=== PATIENT | female | born 1995 | race Caucasian/White ===

== ENCOUNTER 2023-06-20 22:06 | Emergency (ER) | payer SELFPAY ==
[2023-06-20 22:16] VITALS: BP 144/83; PULSE 114; TEMP 36.3; O2SAT 100; BMI 30.9
[2023-06-20 23:22] VITALS: BP 119/74; PULSE 111; RESP 18; O2SAT 98
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
[2023-06-20] MEDS: HYDROcodone-acetaminophen 7.5-325 mg Tablet 1 TAB PO (23:53)
[2023-06-21 00:36] VITALS: PULSE 68; RESP 18; O2SAT 97
--- NOTE | 2023-06-21 10:14 | DCPLANNER ---
Addendum entered by Virginia Angeles 06/23/23 11:04: erp manager received the following message from ENT regarding follow up appointment: All numbers on chart are disconnect. Cannot reach patient. Original Note: erp manager had message to schedule a follow up appointment for patient with ENT. erp manager sent patients information to the front office staff at ENT. Patients information will be printed and reviewed. Clinic will call patient with appointment information.
--- NOTE | 2023-06-21 13:10 | DCPLANNER ---
global commodity manager called patient due to no primary care physician - no answer at this time.
== END 2023-06-21 00:38 | disposition home or self-care (01) ==
PROVIDERS: Emergency Provider Nurse Practitioner Family
DX: S02.2XXA Fracture of nasal bones, initial encounter for closed fracture (principal); V89.2XXA Person injured in unspecified motor-vehicle accident, traffic, initial encounter
CPT/HCPCS: 70486; 72100; 73030; 99284

== ENCOUNTER 2024-02-12 01:25 | Emergency (ER) | payer SELFPAY ==
[2024-02-12 01:31] VITALS: BP 133/88; PULSE 84; RESP 20; TEMP 36.9; O2SAT 100
--- NOTE | 2024-02-12 01:36 | ED_ITS ---
Documented by User: JOSE Mclaughlin 02/12/24 17:10 HPI - Abdominal Pain 2 General: Chief Complaint: Abdominal Pain Stated Complaint: ABD Pain Time Seen by Provider: 02/12/24 01:32 History of Present Illness: 28-year-old female comes in today for co mplaints of right upper quadrant abdominal pain. Patient reports pain started this evening around 10:00. Patient has had very significant pain states some improvement since arrival to the ER. Patient is had some nausea but no vomiting. Patient appears nontoxic. Patient appears in moderate to severe pain. Associated Symptoms: Reports nausea Review of Systems 2 General: Reports: 10 or more systems reviewed and unremarkable except in HPI and below GI: Reports: abdominal pain and nausea Physical Exam 2 Const: COMMON NORMALS: alert HENMT: COMMON NORMALS: normocephalic HEAD & SCALP: normocephalic Neck/C-Spine: COMMON NORMALS: full ROM Resp: COMMON NORMALS: normal respiratory effort and clear to auscultation bilaterally AUSCULTATION: clear to auscultation bilaterally Cardio: COMMON NORMALS: regular rate RATE: regular rate GI: COMMON NORMALS: Soft to palpation PALPATION: Yes Soft to palpation and Yes Tenderness to palpation present (GI) (Epigastric) : COMMON NORMALS: Yes no CVA tenderness BLADDER/KIDNEY EXAM: Yes no CVA tenderness Back/Pelvis: COMMON NORMALS: no CVA tenderness Extremity: COMMON NORMALS: no pedal edema Neuro: SENSORIUM/ORIENTATION: Yes alert Skin: COMMON NORMALS: turgor normal GENERAL SKIN EXAM: turgor normal Course 2 Vital Signs: Vital signs: Vital Signs Temperature 98.5 F 02/12/24 01:31 Pulse Rate 63 02/12/24 04:45 Respiratory Rate 16 02/12/24 04:45 Blood Pressure 123/82 02/12/24 04:45 Pulse Oximetry 96 02/12/24 04:45 Oxygen Delivery Me thod Room Air 02/12/24 01:31 MDM - Abdominal Pain Medical Decision Making 28-year-old female comes in today for complaints of epigastric abdominal pain starting about 10:00 this evening. On exam abdomen soft with some epigastric tenderness. Lungs clear to auscultation. Bowel sounds are present. Skin is warm and dry. Vital signs are normal. Differential diagnosis includes gastritis, pancreatitis, cholecystitis, gallbladder colic, constipation, GERD. Lab Data 02/12/24 01:46 02/12/24 01:46 Labs/Radiology: Radiology Impressions Abdomen/Pelvis CT 02/12/24 01:44 IMPRESSION: 1. Cholelithiasis with no definite gallbladder wall thickening. 2. Prominent, mildly dilated common bile duct which does demonstrate distal tapering. Recommend correlation with liver function tests. Laboratory Results WBC 14.58 10^3/uL (3.29-11.43) H 02/12/24 01:46 RBC 5.00 10^6/uL (3.85-5.65) 02/12/24 01:46 Hgb 14.90 g/dL (11.27-16.99) 02/12/24 01:46 Hct 43.0 % (36-47) 02/12/24 01:46 MCV 86.0 fl (85-98) 02/12/24 01:46 MCH 29.8 pg (27-33) 02/12/24 01:46 MCHC 34.7 g/dL (30-55) 02/12/24 01:46 RDW 12.4 % (12.1-15.1) 02/12/24 01:46 Plt Count 343 10^3/cmm (157-399) 02/12/24 01:46 MPV 9.0 fL (7.4-10.4) 02/12/24 01:46 Neut % (Auto) 50.0 % 02/12/24 01:46 Lymph % (Auto) 39.4 % 02/12/24 01:46 [place] % (Auto) 8.7 % 02/12/24 01:46 Eos % (Auto) 1.2 % 02/12/24 01:46 Baso % (Auto) 0.3 % 02/12/24 01:46 Neut # (Auto) 7.28 10^3/uL (1.8-7.7) 02/12/24 01:46 Lymph # (Auto) 5.8 10^3/uL (0.8-4.8) H 02/12/24 01:46 [place] # (Auto) 1.3 10^3/uL (0.2-0.9) H 02/12/24 01:46 Eos # (Auto) 0.2 10^3/uL (0.0-0.8) 02/12/24 01:46 Baso # (Auto) 0.1 10^3/uL (0.0-0.1) 02/12/24 01:46 Nucleated RBC % (auto) 0 % 02/12/24 01:46 Nucleated RBCs # 0.0 /100WBC 02/12/24 01:46 Sodium 141 mmol/L (136-145) 02/12/24 01:46 Potassium 3.1 mmol/L (3.5-5.1) L 02/12/24 01:46 Chloride 105 mmol/L (98-107) 02/12/24 01:46 Carbon Dioxide 22 mmol/L (22-29) 02/12/24 01:46 Anion Gap 17.1 (5-19) 02/12/24 01:46 BUN 8 mg/dL (6-20) 02/12/24 01:46 Creatinine 0.7 mg/dL (0.5-0.9) 02/12/24 01:46 GFR Calculation 100.4 mL/min (90-130) 02/12/24 01:46 Glucose 117 mg/dL (65-115) H 02/12/24 01:46 Calculated Osmolality 291 mOsm/kg (285-295) 02/12/24 01:46 Calcium 9.5 mg/dL (8.5-10.5) 02/12/24 01:46 Total Bilirubin 0.5 mg/dL (0.15-1.2) 02/12/24 01:46 AST 55 U/L (0-32) H 02/12/24 01:46 ALT 40 U/L (0-33) H 02/12/24 01:46 Alkaline Phosphatase 94 U/L (35-105) 02/12/24 01:46 Total Protein 7.9 g/dL (6.6-8.7) 02/12/24 01:46 Albumin 4.0 g/dL (3.5-5.2) 02/12/24 01:46 Globulin 3.9 g/dL (1.3-4.6) 02/12/24 01:46 Lipase 20 U/L (13-60) 02/12/24 01:46 HCG, Qual Negative (Negative) 02/12/24 01:46 Urine Color Colorless (Yellow) 02/12/24 01:38 Urine Appearance Clear (CLEAR) 02/12/24 01:38 Urine pH 7 (5-7) 02/12/24 01:38 Ur Specific [place] 1.005 (1.005-1.030) 02/12/24 01:38 Urine Protein Neg (Negative) 02/12/24 01:38 Urine Glucose (UA) Norm (Normal) 02/12/24 01:38 Urine Ketones Negative (Negative) 02/12/24 01:38 Urine Blood 2+ (Negative) H 02/12/24 01:38 Urine Nitrate Positive (Negative) H 02/12/24 01:38 Urine Bilirubin Neg (Negative) 02/12/24 01:38 Urine Urobilinogen Neg mg/dL (Negative) 02/12/24 01:38 Ur Leukocyte Esterase Trace (Negative) H 02/12/24 01:38 Urine RBC 5-10 /hpf (0-2) H 02/12/24 01:38 Urine WBC 5-10 /hpf (0-5) H 02/12/24 01:38 Ur Squamous Epith Cells 15-25 /hpf (0-5) H 02/12/24 01:38 Amorphous Sediment Not Reportable 02/12/24 01:38 Urine Bacteria 3+ /hpf (NONE) H 02/12/24 01:38 Urine Trichomonas 1+ /hpf H 02/12/24 01:38 Discharge Plan Discharge Patient Disposition: Home Clinical Impression: Cholelithiases, Infection due to trichomonas vaginalis Abdominal pain Qualifiers: Abdominal location: epigastric Qualified Code(s): R10.13 - Epigastric pain Condition: Stable Prescriptions: New metronidazole 500 mg tablet 500 mg PO BID 7 Days Qty: 14 0RF ondansetron 4 mg tablet,disintegrating 4 mg PO Q6H PRN (Reason: nausea and vomiting) Qty: 14 0RF Continued hydrocodone-acetaminophen 5-325 mg tablet 1 tab PO Q6H PRN (Reason: pain (scale score 7-10)) Qty: 10 0RF Discharge Orders: Discharge ED (Routine); Ordered 02/12/24 Ordered By: Behzad Bowie Patient Instructions: Biliary Colic (ED), Abdominal Pain (ED) Activity Restrictions/Additional Instructions: Follow a liquid diet for the next 24 hours. If pain improved, no vomiting, you can begin to add solid food back and at that point. Use medication for severe discomfort. Return for fever greater than 100, vomiting liquids or medications, yellowing of the eyes or skin, worsening pain despite treatment, any other concerning symptoms. See your doctor next week. Case management has been asked to make you an appointment with the surgeon regarding further evaluation of your gallbladder. Coding Level of Care Code ED Communication Equipment Repairer for Chg [employer] Documented by User: Behzad Bowie DO 02/12/24 05:35 HPI - Abdominal Pain 2 General: Chief Complaint: Abdominal Pain Stated Complaint: ABD Pain Time Seen by Provider: 02/12/24 01:32 Course 2 Vital Signs: Vital signs: Vital Signs Temperature 98.5 F 02/12/24 01:31 Pulse Rate 63 02/12/24 04:45 Respiratory Rate 16 02/12/24 04:45 Blood Pressure 123/82 02/12/24 04:45 Pulse Oximetry 96 02/12/24 04:45 Oxygen Delivery Me thod Room Air 02/12/24 01:31 MDM - Abdominal Pain Medical Decision Making 28-year-old female comes in today for complaints of epigastric abdominal pain starting about 10:00 this evening. On exam abdomen soft with some epigastric tenderness. Lungs clear to auscultation. Bowel sounds are present. Skin is warm and dry. Vital signs are normal. Differential diagnosis includes gastritis, pancreatitis, cholecystitis, gallbladder colic, constipation, GERD. This patient was originally seen by JOSE Mar.? I agree with his history, evaluation, and treatment. She was checked out at shift change. This was pending CT results. CT shows cholelithiasis with no cholecystitis changes. There is mildly dilated common bile duct, but her bilirubin is normal. Pain is improved after Toradol and morphine here. She will be discharged home with biliary colic. She knows to return for any signs of jaundice, fever, worsening pain, etc. Case management has been asked to make a surgical clinic follow-up appointment for this patient for biliary colic. The patient was also treated for trichomonas vaginitis based on her urine testing, and urine was sent for GC and chlamydia as well. Lab Data 02/12/24 01:46 02/12/24 01:46 Labs/Radiology: Radiology Impressions Abdomen/Pelvis CT 02/12/24 01:44 IMPRESSION: 1. Cholelithiasis with no definite gallbladder wall thickening. 2. Prominent, mildly dilated common bile duct which does demonstrate distal tapering. Recommend correlation with liver function tests. Laboratory Results WBC 14.58 10^3/uL (3.29-11.43) H 02/12/24 01:46 RBC 5.00 10^6/uL (3.85-5.65) 02/12/24 01:46 Hgb 14.90 g/dL (11.27-16.99) 02/12/24 01:46 Hct 43.0 % (36-47) 02/12/24 01:46 MCV 86.0 fl (85-98) 02/12/24 01:46 MCH 29.8 pg (27-33) 02/12/24 01:46 MCHC 34.7 g/dL (30-55) 02/12/24 01:46 RDW 12.4 % (12.1-15.1) 02/12/24 01:46 Plt Count 343 10^3/cmm (157-399) 02/12/24 01:46 MPV 9.0 fL (7.4-10.4) 02/12/24 01:46 Neut % (Auto) 50.0 % 02/12/24 01:46 Lymph % (Auto) 39.4 % 02/12/24 01:46 [place] % (Auto) 8.7 % 02/12/24 01:46 Eos % (Auto) 1.2 % 02/12/24 01:46 Baso % (Auto) 0.3 % 02/12/24 01:46 Neut # (Auto) 7.28 10^3/uL (1.8-7.7) 02/12/24 01:46 Lymph # (Auto) 5.8 10^3/uL (0.8-4.8) H 02/12/24 01:46 [place] # (Auto) 1.3 10^3/uL (0.2-0.9) H 02/12/24 01:46 Eos # (Auto) 0.2 10^3/uL (0.0-0.8) 02/12/24 01:46 Baso # (Auto) 0.1 10^3/uL (0.0-0.1) 02/12/24 01:46 Nucleated RBC % (auto) 0 % 02/12/24 01:46 Nucleated RBCs # 0.0 /100WBC 02/12/24 01:46 Sodium 141 mmol/L (136-145) 02/12/24 01:46 Potassium 3.1 mmol/L (3.5-5.1) L 02/12/24 01:46 Chloride 105 mmol/L (98-107) 02/12/24 01:46 Carbon Dioxide 22 mmol/L (22-29) 02/12/24 01:46 Anion Gap 17.1 (5-19) 02/12/24 01:46 BUN 8 mg/dL (6-20) 02/12/24 01:46 Creatinine 0.7 mg/dL (0.5-0.9) 02/12/24 01:46 GFR Calculation 100.4 mL/min (90-130) 02/12/24 01:46 Glucose 117 mg/dL (65-115) H 02/12/24 01:46 Calculated Osmolality 291 mOsm/kg (285-295) 02/12/24 01:46 Calcium 9.5 mg/dL (8.5-10.5) 02/12/24 01:46 Total Bilirubin 0.5 mg/dL (0.15-1.2) 02/12/24 01:46 AST 55 U/L (0-32) H 02/12/24 01:46 ALT 40 U/L (0-33) H 02/12/24 01:46 Alkaline Phosphatase 94 U/L (35-105) 02/12/24 01:46 Total Protein 7.9 g/dL (6.6-8.7) 02/12/24 01:46 Albumin 4.0 g/dL (3.5-5.2) 02/12/24 01:46 Globulin 3.9 g/dL (1.3-4.6) 02/12/24 01:46 Lipase 20 U/L (13-60) 02/12/24 01:46 HCG, Qual Negative (Negative) 02/12/24 01:46 Urine Color Colorless (Yellow) 02/12/24 01:38 Urine Appearance Clear (CLEAR) 02/12/24 01:38 Urine pH 7 (5-7) 02/12/24 01:38 Ur Specific [place] 1.005 (1.005-1.030) 02/12/24 01:38 Urine Protein Neg (Negative) 02/12/24 01:38 Urine Glucose (UA) Norm (Normal) 02/12/24 01:38 Urine Ketones Negative (Negative) 02/12/24 01:38 Urine Blood 2+ (Negative) H 02/12/24 01:38 Urine Nitrate Positive (Negative) H 02/12/24 01:38 Urine Bilirubin Neg (Negative) 02/12/24 01:38 Urine Urobilinogen Neg mg/dL (Negative) 02/12/24 01:38 Ur Leukocyte Esterase Trace (Negative) H 02/12/24 01:38 Urine RBC 5-10 /hpf (0-2) H 02/12/24 01:38 Urine WBC 5-10 /hpf (0-5) H 02/12/24 01:38 Ur Squamous Epith Cells 15-25 /hpf (0-5) H 02/12/24 01:38 Amorphous Sediment Not Reportable 02/12/24 01:38 Urine Bacteria 3+ /hpf (NONE) H 02/12/24 01:38 Urine Trichomonas 1+ /hpf H 02/12/24 01:38 All radiology interpretation(s) finalized by discharge Discharge Plan Discharge Patient Disposition: Home Clinical Impression: Cholelithiases, Infection due to trichomonas vaginalis Abdominal pain Qualifiers: Abdominal location: epigastric Qualified Code(s): R10.13 - Epigastric pain Condition: Stable Prescriptions: New metronidazole 500 mg tablet 500 mg PO BID 7 Days Qty: 14 0RF ondansetron 4 mg tablet,disintegrating 4 mg PO Q6H PRN (Reason: nausea and vomiting) Qty: 14 0RF Continued hydrocodone-acetaminophen 5-325 mg tablet 1 tab PO Q6H PRN (Reason: pain (scale score 7-10)) Qty: 10 0RF Discharge Orders: Discharge ED (Routine); Ordered 02/12/24 Ordered By: Behzad Bowie Patient Instructions: Biliary Colic (ED), Abdominal Pain (ED) Activity Restrictions/Additional Instructions: Follow a liquid diet for the next 24 hours. If pain improved, no vomiting, you can begin to add solid food back and at that point. Use medication for severe discomfort. Return for fever greater than 100, vomiting liquids or medications, yellowing of the eyes or skin, worsening pain despite treatment, any other concerning symptoms. See your doctor next week. Case management has been asked to make you an appointment with the surgeon regarding further evaluation of your gallbladder. Coding Level of Care Code ED Communication Equipment Repairer for Rossy Burgos
--- NOTE | 2024-02-12 01:44 | CTR_ITS ---
PROCEDURE INFORMATION: Exam: CT Abdomen And Pelvis With Contrast Exam date and time: 02/12/2024 2:18 AM Age: 28 years old Clinical indication: Abdominal pain; Localized; Right upper quadrant (ruq); Patient HX: C/O ruq pain TECHNIQUE: Imaging protocol: Computed tomography of the abdomen and pelvis with contrast. Radiation optimization: All CT scans at this facility use at least one of these dose optimization techniques: automated exposure control; mA and/or kV adjustment per patient size (includes targeted exams where dose is matched to clinical indication); or iterative reconstruction. Contrast material: OMNI 350; Contrast volume: 100 ml; Contrast route: INTRAVENOUS (IV); COMPARISON: CR (PELVIS, ) 06/20/2023 11:38 PM RADIATION DOSE METRICS: Total DLP (mGy-cm): 605.33 FINDINGS: Liver: Normal. No mass. Gallbladder and bile ducts: Large calcified intraluminal gallstone. No definite gallbladder wall thickening is identified. Negative for pericholecystic fluid. Common bile duct is mildly dilated at 10 mm within the proximal and midportion with distal tapering evident. Negative for intrahepatic biliary dilation. Pancreas: Normal. No ductal dilation. Spleen: Normal. No splenomegaly. Adrenal glands: Normal. No mass. Kidneys and ureters: Normal. No hydronephrosis. Stomach and bowel: Unremarkable. No obstruction. No mucosal thickening. Appendix: No evidence of appendicitis. Intraperitoneal space: Unremarkable. No free air. No significant fluid collection. Vasculature: Unremarkable. No abdominal aortic aneurysm. Lymph nodes: Unremarkable. No enlarged lymph nodes. Urinary bladder: Unremarkable as visualized. Reproductive: Unremarkable as visualized. Bones/joints: Unremarkable. No acute fracture. Soft tissues: Unremarkable. CT/CT abdomen pelvis w con* [id number] IMPRESSION: 1. Cholelithiasis with no definite gallbladder wall thickening. 2. Prominent, mildly dilated common bile duct which does demonstrate distal tapering. Recommend correlation with liver function tests.
[2024-02-12] MEDS: sodium chloride 0.9% 500 ML 999 ML IV (01:57)
[2024-02-12] MEDS: ondansetron 2 mg/ML SDV 2 mL 4 MG IVP ×2 (01:58→04:10)
[2024-02-12] MEDS: alum-mag-hydroxide-sime 30 mL UDC PO (01:58)
[2024-02-12] MEDS: famotidine 20 mg/2 mL INJ 40 MG IVP (02:00)
[2024-02-12 02:01] LABS: Add Urine Microscopic? YES; Bilirubin Urine Neg (Negative); Blood Urine 2+ (Negative); Glucose Urine UA Norm (Normal); Ketones Urine Negative (Negative); Leukocyte Esterase Urine Trace (Negative); Nitrate Urine Positive (Negative); Protein Urine Neg (Negative); Specific Gravity, Urine 1.005 (1.005-1.030); Urine Appearance Clear (CLEAR); Urine Color Colorless (Yellow); Urobilinogen Urine Neg (Negative); pH Urine 7 (5-7)
[2024-02-12 02:02] LABS: Bacteria Urine 3+ /hpf; Squamous Epithelial Cell Urine 15-25 /hpf (0-5); Trichomonas Urine 1+ /hpf
[2024-02-12 02:03] VITALS: RESP 20; O2SAT 95
[2024-02-12] MEDS: fentaNYL 50 mcg/mL INJ 2mL IVP (02:03)
[2024-02-12 02:05] LABS: Basophils # 0.1 10^3/uL (0.0-0.1); Basophils % 0.3 %; Eosinophils # 0.2 10^3/uL (0.0-0.8); Eosinophils % 1.2 %; Lymphocytes # 5.8 10^3/uL (0.8-4.8); Lymphocytes % 39.4 %; Mean Corpuscular HGB Conc 34.7 g/dL (30-55); Mean Corpuscular Hemoglobin 29.8 pg (27-33); Monocytes # 1.3 10^3/uL (0.2-0.9); Monocytes % 8.7 %; Neutrophils # 7.28 10^3/uL (1.8-7.7); Nucleated Red Blood Cells % 0 %; Platelet Count 343 10^3/cmm (157-399); Red Cell Distribution Width 12.4 % (12.1-15.1); White Blood Count 14.58 10^3/uL (3.29-11.43)
[2024-02-12 02:09] LABS: HCG, Serum Qual Negative (Negative)
[2024-02-12 02:12] LABS: Alanine Aminotransferase 40 U/L (0-33); Alkaline Phosphatase 94 U/L (35-105); Anion Gap 17.1 (5-19); Aspartate Amino Transferase 55 U/L (0-32); Blood Urea Nitrogen 8 mg/dL (6-20); Calcium 9.5 mg/dL (8.5-10.5); Carbon Dioxide 22 mmol/L (22-29); Chloride 105 mmol/L (98-107); Creatinine Clr Calc Pharmacy 123.0576; Globulin 3.9 g/dL (1.3-4.6); Glomerular Filtration Rate 100.4 mL/min (90-130); Glucose 117 mg/dL (65-115); Lipase 20 U/L (13-60); Osmolality Calculated 291 mOsm/kg (285-295); Potassium 3.1 mmol/L (3.5-5.1); Sodium 141 mmol/L (136-145); Total Bilirubin 0.5 mg/dL (0.15-1.2); Total Protein 7.9 g/dL (6.6-8.7)
[2024-02-12] MEDS: iohexol 350 mg/mL 500 mL Btl (per mL) IV (02:28)
[2024-02-12] MEDS: ketorolac 30 mg/mL INJ IVP (04:10)
[2024-02-12 04:12] VITALS: RESP 16
[2024-02-12] MEDS: morphine 4 mg/mL SDV 1 mL IVP (04:12)
[2024-02-12 04:14] VITALS: BP 141/100; PULSE 62; RESP 18; O2SAT 99
[2024-02-12 04:45] VITALS: BP 123/82; PULSE 63; RESP 16; O2SAT 96
--- NOTE | 2024-02-13 11:05 | DCPLANNER ---
A message was sent to general surgery on 02/13/24 at [id number]
--- NOTE | 2024-02-13 11:19 | DCPLANNER ---
A message was sent to general surgery ob 02/13/24 at 1119. [facility] to contact patient
[2024-02-13 20:30] LABS: Chlamydia Trachomatis RNA TMA NOT DETECTED (NOT DETECTED); Neisseria Gonorrhoeae RNA, TMA NOT DETECTED (NOT DETECTED); Trichomonas Vaginalis RNA DETECTED (NOT DETECTED)
== END 2024-02-12 04:42 | disposition home or self-care (01) ==
PROVIDERS: Nurse Practitioner Family; Emergency Provider Emergency Medicine
DX: K80.20 Calculus of gallbladder without cholecystitis without obstruction (principal); A59.00 Urogenital trichomoniasis, unspecified; R10.13 Epigastric pain
CPT/HCPCS: 74177; 80053; 81001; 83690; 84703; 85025; 87491; 87591; 96361; 96374; 96375; 96376; 99285; J1885; J2270; J2405; J3010; J3490; J7040; Q9967

== ENCOUNTER 2024-02-15 17:08 | Emergency (ER) | payer SELFPAY ==
[2024-02-15 17:08] VITALS: BP 120/87; PULSE 105; RESP 18; TEMP 36.5; O2SAT 100; BMI 30.9
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
[2024-02-15 17:41] VITALS: BP 85/43; PULSE 84; O2SAT 95
[2024-02-15] MEDS: sodium chloride 0.9% 1,000 ML 999 ML IV ×2 (18:07→19:32)
[2024-02-15 18:20] LABS: Basophils # 0.1 10^3/uL (0.0-0.1); Basophils % 0.6 %; Eosinophils # 0.3 10^3/uL (0.0-0.8); Hematocrit 40.7 % (36-47); Lymphocytes # 4.7 10^3/uL (0.8-4.8); Lymphocytes % 37.2 %; Mean Corpuscular HGB Conc 34.6 g/dL (30-55); Mean Corpuscular Volume 86.6 fl (85-98); Mean Platelet Volume 9.1 fL (7.4-10.4); Monocytes # 1.2 10^3/uL (0.2-0.9); Monocytes % 9.4 %; Neutrophils # 6.31 10^3/uL (1.8-7.7); Neutrophils % 50.3 %; Nucleated Red Blood Cells % 0 %; Platelet Count 310 10^3/cmm (157-399); Red Cell Distribution Width 12.2 % (12.1-15.1); White Blood Count 12.54 10^3/uL (3.29-11.43)
[2024-02-15 18:32] LABS: Alanine Aminotransferase 58 U/L (0-33); Alkaline Phosphatase 119 U/L (35-105); Anion Gap 15.2 (5-19); Aspartate Amino Transferase 43 U/L (0-32); Blood Urea Nitrogen 14 mg/dL (6-20); Carbon Dioxide 23 mmol/L (22-29); Chloride 105 mmol/L (98-107); Creatinine Clr Calc Pharmacy 120.4276; Globulin 3.1 g/dL (1.3-4.6); Glomerular Filtration Rate 100.4 mL/min (90-130); Glucose 83 mg/dL (65-115); Osmolality Calculated 290 mOsm/kg (285-295); Potassium 3.2 mmol/L (3.5-5.1); Sodium 140 mmol/L (136-145); Total Bilirubin 0.8 mg/dL (0.15-1.2); Total Protein 7.1 g/dL (6.6-8.7)
[2024-02-15 18:33] LABS: Alcohol Level < 10 mg/dL (0-10)
[2024-02-15 18:52] VITALS: BP 89/40; PULSE 77; RESP 13; O2SAT 96
[2024-02-15 20:30] VITALS: BP 93/57; PULSE 76; RESP 14; O2SAT 98
[2024-02-15 21:08] VITALS: BP 98/57; PULSE 77; RESP 15; O2SAT 96
== END 2024-02-15 21:09 | disposition home or self-care (01) ==
PROVIDERS: Emergency Provider Nurse Practitioner Family
DX: S01.81XA Laceration without foreign body of other part of head, initial encounter (principal); F19.920 Other psychoactive substance use, unspecified with intoxication, uncomplicated; Y04.2XXA Assault by strike against or bumped into by another person, initial encounter; Y07.040 Female partner, current, perpetrator of maltreatment and neglect
CPT/HCPCS: 12011; 70450; 80053; 80307; 85025; 96361; 96374; 99285; J2310; J7030

== ENCOUNTER 2024-05-04 01:53 | Emergency (ER) | payer SELFPAY ==
[2024-05-04 01:54] VITALS: BP 132/104; PULSE 105; RESP 18; TEMP 37.1; O2SAT 99; BMI 28.3
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
[2024-05-04 02:29] LABS: Basophils % 0.2 %; Eosinophils # 0.2 10^3/uL (0.0-0.8); Eosinophils % 1.9 %; Hematocrit 42.1 % (36-47); Lymphocytes # 3.2 10^3/uL (0.8-4.8); Lymphocytes % 29.8 %; Mean Corpuscular HGB Conc 33.7 g/dL (30-55); Mean Corpuscular Hemoglobin 29.7 pg (27-33); Mean Corpuscular Volume 88.1 fl (85-98); Mean Platelet Volume 8.7 fL (7.4-10.4); Monocytes # 1.3 10^3/uL (0.2-0.9); Monocytes % 11.8 %; Neutrophils # 6.02 10^3/uL (1.8-7.7); Neutrophils % 55.9 %; Nucleated Red Blood Cells % 0 %; Platelet Count 301 10^3/cmm (157-399); Red Blood Count 4.78 10^6/uL (3.85-5.65); Red Cell Distribution Width 12.8 % (12.1-15.1); White Blood Count 10.75 10^3/uL (3.29-11.43)
[2024-05-04 02:39] LABS: Add Urine Microscopic? YES; Bilirubin Urine Neg (Negative); Blood Urine 3+ (Negative); Glucose Urine UA Norm (Normal); Ketones Urine Negative (Negative); Leukocyte Esterase Urine Negative (Negative); Nitrate Urine Positive; Protein Urine Neg (Negative); Urine Appearance Slightly Cloudy (CLEAR); Urine Color Yellow (Yellow); Urobilinogen Urine Neg (Negative); pH Urine 6.5 (5-7)
[2024-05-04 02:40] LABS: Add Urine Culture? No; Bacteria Urine 4+ /hpf; Mucus Urine 2+ /hpf; Squamous Epithelial Cell Urine 15-25 /hpf (0-5)
[2024-05-04 02:41] LABS: Amphetamines Screen Urine Positive (Negative); Barbiturates Screen Urine Negative (Negative); Benzodiazepines Screen Urine Positive (Negative); Cocaine Screen Urine Negative (Negative); Opiate Screen Urine Positive (Negative); PCP Screen Urine Negative (Negative); THC Screen Urine Negative (Negative)
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
[2024-05-04 02:48] LABS: Alanine Aminotransferase 61 U/L (0-33); Albumin Level 4.1 g/dL (3.5-5.2); Alkaline Phosphatase 105 U/L (35-105); Anion Gap 15.7 (5-19); Aspartate Amino Transferase 52 U/L (0-32); Blood Urea Nitrogen 12 mg/dL (6-20); Calcium 9.2 mg/dL (8.5-10.5); Carbon Dioxide 26 mmol/L (22-29); Chloride 105 mmol/L (98-107); Creatinine Clr Calc Pharmacy 114.2211; Globulin 3.6 g/dL (1.3-4.6); Glomerular Filtration Rate 99.6 mL/min (90-130); Glucose 103 mg/dL (65-115); Osmolality Calculated 296 mOsm/kg (285-295); Potassium 3.7 mmol/L (3.5-5.1); Sodium 143 mmol/L (136-145); Total Bilirubin 0.6 mg/dL (0.15-1.2); Total Protein 7.7 g/dL (6.6-8.7)
[2024-05-04 02:49] LABS: Alcohol Level < 10 mg/dL (0-10)
[2024-05-04] MEDS: ketorolac 60 mg/2 mL INJ IM (02:53)
--- NOTE | 2024-05-04 02:56 | PC.NURSE ---
Patient took pulse ox and blood pressure cuff off and threw it on floor, declining to wear them at this time. '
== END 2024-05-04 03:00 | disposition left against medical advice (07) ==
PROVIDERS: Emergency Provider Emergency Medicine
DX: S09.93XA Unspecified injury of face, initial encounter (principal); Z53.29 Procedure and treatment not carried out because of patient's decision for other reasons; Y04.2XXA Assault by strike against or bumped into by another person, initial encounter
CPT/HCPCS: 36415; 70450; 70486; 72125; 73030; 80053; 80306; 80307; 81001; 85025; 96372; 99284; J1885

== ENCOUNTER 2024-08-21 00:44 | Emergency (ER) | payer SELFPAY ==
[2024-08-21 00:48] VITALS: BP 138/86; PULSE 88; RESP 16; TEMP 36.6; O2SAT 100; BMI 28.2
--- NOTE | 2024-08-21 00:53 | ED_ITS ---
HPI - General Adult General: Chief complaint: Airway/Esophagus Foreign Body Stated complaint: FO in throat Time Seen by Provider: 08/21/24 00:47 History of Present Illness: 29-year-old female who presents emergenc y room with feeling of something stuck in her throat. She said she was eating popcorn chicken and got stuck and she had trouble swallowing it. She still feels like there something in there. However she is able to swallow water. She also feels like she may be having some anxiety. She says she just darted back on Suboxone. Related Data Previous Rx's Medication Instructions Recorded hydrocodone 5 mg-acetaminophen 325 1 tab PO Q6H PRN pain (scale score 02/12/24 mg tablet 7-10) #10 tabs ondansetron 4 mg disintegrating 4 mg PO Q6H PRN nausea and 02/12/24 tablet vomiting #14 tabs Allergies Allergy/AdvReac Type Severity Reaction Status Date / Time No Known Allergies Allergy Verified 08/21/24 00:52 Review of Systems Narrative: Constitutional symptoms: Negative except as documented in HPI. Skin symptoms: Negative except as documented in HPI. Eye symptoms: Negative except as documented in HPI. ENMT symptoms: Negative except as documented in HPI. Respiratory symptoms: Negative except as documented in HPI. Cardiovascular symptoms: Negative except as documented in HPI. Gastrointestinal symptoms: Negative except as documented in HPI. Genitourinary symptoms: Negative except as documented in HPI. Musculoskeletal symptoms: Negative except as documented in HPI. Neurologic symptoms: Negative except as documented in HPI. Psychiatric symptoms: Negative except as documented in HPI. Endocrine symptoms: Negative except as documented in HPI. [facility] ED Female Reproductive History: Date of last menstrual period: 07/22/24 Physical Exam Narrative: EXAM NARRATIVE: General: Alert, no acute distress. Skin: Warm, dry. Head: Normocephalic, atraumatic. Neck: Supple, trachea midline. Eye: Extraocular movements are intact. Ears, nose, mouth and throat: mucosa moist. Cardiovascular: Regular, Normal peripheral perfusion. Respiratory: Lungs are clear to auscultation, respirations are non-labored, breath sounds are equal, Symmetrical chest wall expansion. Gastrointestinal: Soft, Nontender, Non distended Musculoskeletal: Normal ROM, no deformity. Neurological: Alert and oriented, No focal neurological deficit observed. Psychiatric: Cooperative, appropriate mood & affect. Course Vital Signs: Vital signs: Vital Signs Temperature 97.9 F 08/21/24 00:48 Pulse Rate 99 08/21/24 00:55 Respiratory Rate 16 08/21/24 00:48 Blood Pressure 138/86 08/21/24 00:55 Pulse Oximetry 100 08/21/24 00:55 Oxygen Delivery Me thod Room Air 08/21/24 00:55 MDM - General Adult Medical Decision Making Assessment and plan: Esophageal abrasion - Patient is tolerating fluids. - Discharged home - Discussed plan with patient. Answered any questions. - Evaluation and treatment of this problem were appropriate in the emergency setting. No radiology studies performed this visit Discharge Plan Discharge Patient Disposition: Home Clinical Impression: Esophageal abrasion Condition: Stable Prescriptions: No Action ondansetron 4 mg tablet,disintegrating 4 mg PO Q6H PRN (Reason: nausea and vomiting) Qty: 14 0RF hydrocodone-acetaminophen 5-325 mg tablet 1 tab PO Q6H PRN (Reason: pain (scale score 7-10)) Qty: 10 0RF Discharge Orders: Discharge ED (Routine); Ordered 08/21/24 Ordered By: Charley Jones Referrals: Florentin Badillo DO [Physician] - 1-3 days (Please call for an appointment if pain persist.) Discharge Diet: Full LIquid Discharge Activity: Resume usual activity Patient Instructions: Esophageal Foreign Body (ED) Activity Restrictions/Additional Instructions: Thank you for choosing [facility] for your healthcare needs today. Please realize this is an emergency room and that we are providing you with a medical screening exam and this may not be complete and all inclusive of all the testing and or work up that you may need to determine your ailment or severity of your illness. You have been screened and evaluated and felt safe for discharge. Health conditions do change or evolve sometimes and as such it is important that you follow up with your Primary Doctor to be re checked, 3-5 days is a general good time frame for follow up. You are always welcome to return to the ED for re assessment if your symptoms are worsening or you have new concerns Coding Level of Care Code ED Manager Balance for Rossy Burgos
[2024-08-21 00:55] VITALS: BP 138/86; PULSE 99; O2SAT 100
[2024-08-21] MEDS: lidocaine 2% viscous 15 ML, aluminum-mag hydrox-simethicon 30 ML, sucralfate oral liq 1 GM PO (01:23)
[2024-08-21] MEDS: LORazepam 2 mg/mL oral liquid (mL) 1 MG PO (01:34)
[2024-08-21 01:52] VITALS: BP 130/79; PULSE 91; RESP 16; O2SAT 100
== END 2024-08-21 01:54 | disposition home or self-care (01) ==
PROVIDERS: Emergency Provider Emergency Medicine
DX: S27.818A Other injury of esophagus (thoracic part), initial encounter (principal); X58.XXXA Exposure to other specified factors, initial encounter
CPT/HCPCS: 99283